=== PATIENT | male | born 1970 | race Caucasian/White ===

== ENCOUNTER 2017-06-11 20:35 | Emergency (ER) | payer OTHER ==
[2017-06-11 20:43] VITALS: BP 138/97; PULSE 76; TEMP 98; BMI 30.9
[2017-06-11] MEDS ORDERED: KETOROLAC TROMETHAMINE 60 MG/2 ML VIAL IM ONE (21:03)
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
[2017-06-11] MEDS ORDERED: KETOROLAC TROMETHAMINE 60 MG/2 ML VIAL ONE (21:13)
[2017-06-11] MEDS ORDERED: IBUPROFEN 400 MG TABLET (FP) PO ONE ×2 (21:15)
== END 2017-06-11 21:29 | disposition home or self-care (01) ==
LOC: JER 20:35
DX: M54.42 Lumbago with sciatica, left side (principal); W01.0XXA Fall on same level from slipping, tripping and stumbling without subsequent striking against object, initial encounter; Y93.89 Activity, other specified; Y92.89 Other specified places as the place of occurrence of the external cause; Y99.0 Civilian activity done for income or pay; I10 Essential (primary) hypertension; F41.9 Anxiety disorder, unspecified
CPT/HCPCS: 99281-25

== ENCOUNTER 2021-12-17 10:18 | Inpatient (IN) | payer BC, OTHER ==
[2021-12-17 11:52] LABS: CALCIUM 10.3 mg/dL (8.5-10.1)
[2021-12-17 11:53] LABS: ALBUMIN 4.6 g/dl (3.4-5.0)
[2021-12-17 11:56] LABS: CREATININE 0.9 mg/dL (0.55-1.3)
[2021-12-17 11:57] LABS: BILIRUBIN,TOTAL 0.8 mg/dL (0.2-1); TOT PROT 8.2 g/dl (6.4-8.2)
[2021-12-17 12:04] LABS: BASO % 0.5 % (0-2.0); EOS % 1.9 % (0-4.5); HEMATOCRIT 53.7 % (35.4-49); HEMOGLOBIN 18.6 GM/dL (11.7-16.9); LYMPH % 25.5 % (8-40); MCH 30.5 pg (25.7-33.7); MCHC 34.7 g/dl (32.0-35.9); MEAN CELL VOLUME 87.9 fl (80-96); MEAN PLT VOLUME 7.1 fl (7.5-11.1); NEUT % 62.1 % (42.8-82.8); PLATELET COUNT 285 10^3/uL (134-434); RBC 6.11 M/mm3 (4.00-5.60); RDW 12.4 % (11.9-15.9); WHITE BLOOD COUNT 6.8 K/mm3 (4.0-10.0)
[2021-12-17] MEDS ORDERED: ASPIRIN 81 MG CHEWABLE TABLETS PO ONE ×2 (12:18→12:19)
[2021-12-17] MEDS ORDERED: ASPIRIN 81 MG CHEWABLE TABLETS ONE (12:26)
[2021-12-17 14:49] LABS: INR 1.05 (0.83-1.09); PROTHROMBIN TIME (PATIENT) 12.1 SEC (9.7-13.0)
[2021-12-17 14:52] LABS: ACTIVATED PTT 36.3 SECONDS (25.2-36.5)
[2021-12-17] MEDS ORDERED: ACETAMINOPHEN 325 MG TABLET (FP) PO PRN (15:04)
[2021-12-17] MEDS ORDERED: ALPRAZolam 1 MG TABLET PO PRN (15:04)
[2021-12-17] MEDS ORDERED: ENOXAPARIN NA (PORCINE) 120 MG/0.8 ML DISP.SYRIN SQ SCH (18:00)
[2021-12-17 18:48] VITALS: BMI 32.4
[2021-12-17] MEDS: ATORVASTATIN CA 80 MG TABLET (FP) PO SCH (21:41)
[2021-12-17] MEDS: clonazePAM 0.5 MG TABLET PO SCH (21:42)
[2021-12-17] MEDS ORDERED: ENOXAPARIN NA (PORCINE) 100 MG/1 ML DISP.SYRIN SQ SCH (22:00)
[2021-12-18] MEDS: clonazePAM 0.5 MG TABLET PO SCH ×3 (06:48→21:27)
[2021-12-18 07:26] LABS: HEMATOCRIT 52.9 % (35.4-49); HEMOGLOBIN 18.2 GM/dL (11.7-16.9); MCH 30.4 pg (25.7-33.7); MCHC 34.4 g/dl (32.0-35.9); MEAN CELL VOLUME 88.4 fl (80-96); MEAN PLT VOLUME 7.1 fl (7.5-11.1); PLATELET COUNT 282 10^3/uL (134-434); RBC 5.98 M/mm3 (4.00-5.60); RDW 12.6 % (11.9-15.9); WHITE BLOOD COUNT 11.1 K/mm3 (4.0-10.0)
[2021-12-18 07:42] LABS: CHLORIDE 103 mmol/L (98-107); SODIUM 138 mmol/L (136-145)
[2021-12-18 07:53] LABS: CALCIUM 9.4 mg/dL (8.5-10.1)
[2021-12-18 07:54] LABS: ALBUMIN 3.9 g/dl (3.4-5.0); ANION GAP 9 MMOL/L (8-16); BLOOD UREA NITROGEN 13.9 mg/dL (7-18); CO2 27 mmol/L (21-32); GLUCOSE,RANDOM 91 mg/dL (74-106)
[2021-12-18 07:56] LABS: CHOLESTEROL 200 mg/dL (50-200)
[2021-12-18 07:57] LABS: SGOT/AST 90 U/L (15-37); SGPT/ALT 41 U/L (13-61); TRIGLYCERIDES 208 mg/dL (0-150)
[2021-12-18 07:58] LABS: LDL CHOLESTEROL (ONLY SJRH) 134 mg/dL (5-100)
[2021-12-18 07:59] LABS: BILIRUBIN,TOTAL 0.8 mg/dL (0.2-1); HDL CHOLESTEROL 34 mg/dL (40-60); TOT PROT 7.6 g/dl (6.4-8.2)
[2021-12-18 08:00] LABS: ALK PHOS 53 U/L (45-117)
[2021-12-18] MEDS ORDERED: CLOPIDOGREL BISULFATE 300 MG TABLET PO ONE (09:00)
[2021-12-18] MEDS: VALSARTAN 160 MG TABLET PO SCH (09:24)
[2021-12-18] MEDS: amLODIPine BESYLATE 10 MG TABLET (FP) PO SCH (09:24)
[2021-12-18] MEDS: ASPIRIN COATED 81 MG TABLET.EC PO SCH (09:24)
[2021-12-18] MEDS: ENOXAPARIN NA (PORCINE) 120 MG/0.8 ML DISP.SYRIN SQ SCH ×2 (10:59→21:28)
[2021-12-18] MEDS: METOPROLOL TARTRATE 25 MG TABLET (FP) PO SCH ×2 (10:59→21:28)
[2021-12-18] MEDS: ATORVASTATIN CA 80 MG TABLET (FP) PO SCH (21:28)
[2021-12-19] MEDS: METOPROLOL TARTRATE 25 MG TABLET (FP) PO SCH (09:00)
[2021-12-19] MEDS: ASPIRIN COATED 81 MG TABLET.EC PO SCH (09:01)
[2021-12-19] MEDS: VALSARTAN 160 MG TABLET PO SCH (09:01)
[2021-12-19] MEDS: amLODIPine BESYLATE 10 MG TABLET (FP) PO SCH (09:01)
[2021-12-19] MEDS ORDERED: CLOPIDOGREL BISULFATE 75 MG TABLET (FP) PO SCH (10:00)
[2021-12-19] MEDS: ENOXAPARIN NA (PORCINE) 120 MG/0.8 ML DISP.SYRIN SQ SCH (13:43)
[2021-12-19 15:55] VITALS: BP 127/83; PULSE 79; TEMP 98.4
[2021-12-19] MEDS: clonazePAM 0.5 MG TABLET PO SCH ×2 (16:16→17:22)
== END 2021-12-19 19:00 | disposition short-term general hospital (02) | DRG 282 ==
LOC: JER 10:18 → JERBED 12:25 → J4W 18:00
PROVIDERS: ADMIT Family Medicine; ATTEND Family Medicine
DX: I21.4 Non-ST elevation (NSTEMI) myocardial infarction (principal); I10 Essential (primary) hypertension; F41.9 Anxiety disorder, unspecified; F17.200 Nicotine dependence, unspecified, uncomplicated; E78.5 Hyperlipidemia, unspecified
CPT/HCPCS: 36415; 71045-TC-FY; 80053; 80061; 84443; 84484; 85025; 85027; 85379; 85610; 85730; 93005; 93010; 93306-TC; 99285-25; C9803-CS; U0003; U0005

== ENCOUNTER 2024-07-19 11:29 | Emergency (ER) | payer BC, OTHER ==
[2024-07-19 11:36] VITALS: BP 129/76; PULSE 66; RESP 18; TEMP 97.7; BMI 31.8
== END 2024-07-19 13:26 | disposition home or self-care (01) ==
LOC: JER 11:29
DX: S00.01XA Abrasion of scalp, initial encounter (principal); W22.8XXA Striking against or struck by other objects, initial encounter
CPT/HCPCS: 70450-TC; 93005; 93010; 99284-25